=== PATIENT | female | born 1950 | race Caucasian/White ===

== ENCOUNTER 2020-03-09 19:31 | Inpatient (IN) ==
[2020-03-09] MEDS ORDERED: ONDANSETRON 4 MG/2 ML VIAL IV ONE (20:22)
[2020-03-09] MEDS ORDERED: ONDANSETRON 4 MG/2 ML VIAL ONE (20:23)
[2020-03-09 21:00] LABS: Eosinophils % 0.5 % (0.00-10.9); Hematocrit 45.3 VOL% (35.7-47.0); Hemoglobin 14.7 GM/DL (12.0-16.0); Immature Granulocytes % 0.2 %; Immature Granulocytes Absolute 0.01 #; Lymphocytes # 1.5 10*3/uL (1.4-4.0); Lymphocytes % 25.4 % (21.3-54.2); Mean Corpuscular HGB Conc 32.5 GM/DL (32-36); Mean Corpuscular Volume 89.3 FL (87-102); Mean Platelet Volume 9.4 FL (9.6-12.0); Monocytes % 4.2 % (1.7-12.7); Neutrophils % 69.7 % (38.7-73.9); Platelet Count 164 T/CUMM (130-400); Red Blood Count 5.07 MC/CUMM (3.8-5.5); Red Cell Distribution Width 12.8 % (9.3-17.3); White Blood Count 5.8 T/CUMM (4-12)
[2020-03-09 21:11] LABS: INR 1.1; PT Patient Result 11.7 SECS (9.8-11.9); Partial Thromboplastin Time 33.9 SECS (23.9-33.8)
[2020-03-09 21:13] LABS: Ferritin 232.2 ng/ml (8-252)
[2020-03-09 21:13] LABS: Apearance,Urine CLOUDY (Clear); Bacteria,Urine Moderate /HPF (Few); Bilirubin,Urine Negative (Negative); Blood, Urine Large mg/dL (Negative); Glucose,Urine (UA) Negative (Negative); Ketones,Urine 80 mg/dL (Negative); Mucus,Urine Many /LPF (Occasional); Nitrite,Urine Negative (Negative); Protein,Urine 100 MG/DL; RBC,Urine 5 /HPF (0-4); Squamous Epithelial Cell,Urine Occasional /HPF (0-10); Urine Specific Gravity 1.032 (1.001-1.035); WBC,Urine 16 /HPF (0-6)
[2020-03-09 21:15] LABS: Urine Color Yellow (Yellow)
[2020-03-09] MEDS ORDERED: cefTRIAXone 1,000 MG in SODIUM CHLORIDE 0.9% 100 ML IV STA (21:19)
[2020-03-09 21:22] LABS: Albumin 3.6 G/DL (3.4-5.0); Bilirubin,Total 0.5 MG/DL (0.2-1.0); Calcium 8.7 MG/DL (8.5-10.1); Osmolality,Calculated 274.8 MOS/KG (273-304); Total Protein 7.3 G/DL (6.4-8.3)
[2020-03-09] MEDS ORDERED: SODIUM CHLORIDE 0.9% 500 ML IV STA (21:31)
[2020-03-09] MEDS ORDERED: LORazepam 2 MG/1 ML VIAL IV STA (22:39)
[2020-03-09] MEDS ORDERED: ONDANSETRON 4 MG/2 ML VIAL IV PRN (23:14)
[2020-03-10] MEDS: SODIUM CHLORIDE 0.9% 1,000 ML IV SCH ×3 (01:25→21:42)
[2020-03-10 02:30] LABS: Hematocrit 41.1 VOL% (35.7-47.0); Hemoglobin 13.2 GM/DL (12.0-16.0); Immature Granulocytes % 0.4 %; Immature Granulocytes Absolute 0.02 #; Lymphocytes % 21.2 % (21.3-54.2); Mean Corpuscular HGB Conc 32.1 GM/DL (32-36); Mean Corpuscular Volume 90.3 FL (87-102); Mean Platelet Volume 9.3 FL (9.6-12.0); Monocytes % 5.2 % (1.7-12.7); Neutrophils % 73.2 % (38.7-73.9); Platelet Count 141 T/CUMM (130-400); Red Blood Count 4.55 MC/CUMM (3.8-5.5); Red Cell Distribution Width 12.8 % (9.3-17.3); White Blood Count 4.8 T/CUMM (4-12)
[2020-03-10] MEDS: ACETAMINOPHEN 325 MG TABLET PO PRN ×2 (02:34→08:29)
[2020-03-10 02:39] LABS: INR 1.1; PT Patient Result 11.9 SECS (9.8-11.9)
[2020-03-10 02:48] LABS: Bilirubin,Total 0.4 MG/DL (0.2-1.0); Calcium 8.3 MG/DL (8.5-10.1); Osmolality,Calculated 275.7 MOS/KG (273-304); Total Protein 6.7 G/DL (6.4-8.3)
[2020-03-10] MEDS: DOCUSATE SODIUM 100 MG CAPSULE PO SCH ×2 (08:28→20:12)
[2020-03-10] MEDS: ENOXAPARIN 40 MG/0.4 ML SYRINGE SUBCUT SCH (08:34)
[2020-03-10] MEDS ORDERED: PANTOPRAZOLE 40 MG TABLET PO SCH (09:00)
[2020-03-10] MEDS ORDERED: BENZONATATE 100 MG CAPSULE PO PRN (10:46)
[2020-03-10] MEDS ORDERED: CETIRIZINE 10 MG TABLET PO PRN (10:47)
[2020-03-10] MEDS ORDERED: ALBUTEROL 2.5 MG/3 ML NEB RESP TX PRN (10:47)
[2020-03-10] MEDS: methylPREDNISolone SOD SUC 40 MG/1 ML VIAL IV SCH (15:15)
[2020-03-10] MEDS: cefTRIAXone 1,000 MG in SYRINGE 1 EACH IV SCH (15:15)
[2020-03-10] MEDS ORDERED: IBUPROFEN 600 MG TABLET PO PRN (16:23)
[2020-03-10] MEDS ORDERED: LORazepam 1 MG TABLET PO PRN (16:47)
[2020-03-11 06:03] LABS: Calcium 8.5 MG/DL (8.5-10.1); Osmolality,Calculated 278.4 MOS/KG (273-304)
[2020-03-11] MEDS: LEVOTHYROXINE 112 MCG TABLET PO SCH (08:19)
[2020-03-11] MEDS: ASPIRIN EC 81 MG TABLET PO SCH (08:20)
[2020-03-11] MEDS: CITALOPRAM 20 MG TABLET PO SCH (08:20)
[2020-03-11] MEDS: methylPREDNISolone SOD SUC 40 MG/1 ML VIAL IV SCH ×2 (08:21→21:41)
[2020-03-11] MEDS: ENOXAPARIN 40 MG/0.4 ML SYRINGE SUBCUT SCH (08:21)
[2020-03-11] MEDS: cefTRIAXone 1,000 MG in SYRINGE 1 EACH IV SCH (08:22)
[2020-03-11] MEDS: SODIUM CHLORIDE 0.9% 1,000 ML IV SCH ×2 (09:35→18:36)
[2020-03-11] MEDS: DOCUSATE SODIUM 100 MG CAPSULE PO SCH (09:36)
[2020-03-11] MEDS: ACETAMINOPHEN 325 MG TABLET PO PRN (11:30)
[2020-03-11] MEDS ORDERED: MECLIZINE 12.5 MG TABLET PO ONE (12:00)
[2020-03-12] MEDS: DOCUSATE SODIUM 100 MG CAPSULE PO SCH ×3 (03:29→20:40)
[2020-03-12] MEDS: CITALOPRAM 20 MG TABLET PO SCH (09:20)
[2020-03-12] MEDS: LEVOTHYROXINE 112 MCG TABLET PO SCH (09:20)
[2020-03-12] MEDS: ENOXAPARIN 40 MG/0.4 ML SYRINGE SUBCUT SCH (09:20)
[2020-03-12] MEDS: ASPIRIN EC 81 MG TABLET PO SCH (09:20)
[2020-03-12] MEDS: SODIUM CHLORIDE 0.9% 1,000 ML IV SCH ×2 (09:51→14:43)
[2020-03-12] MEDS: cefTRIAXone 1,000 MG in SYRINGE 1 EACH IV SCH (09:53)
[2020-03-12] MEDS: methylPREDNISolone SOD SUC 40 MG/1 ML VIAL IV SCH ×2 (09:54→20:40)
[2020-03-12] MEDS ORDERED: traZODone 50 MG TABLET PO PRN (10:16)
[2020-03-12] MEDS: CALCIUM CARBONATE CHEW 500 MG TABLET PO SCH ×2 (10:21→18:55)
[2020-03-12] MEDS: MECLIZINE 25 MG TABLET PO PRN (10:22)
[2020-03-12] MEDS: FAMOTIDINE 20 MG TABLET PO SCH ×2 (12:23→20:40)
[2020-03-13] MEDS: SODIUM CHLORIDE 0.9% 1,000 ML IV SCH ×4 (00:23→22:32)
[2020-03-13 05:29] LABS: Hematocrit 36.6 VOL% (35.7-47.0); Hemoglobin 12.2 GM/DL (12.0-16.0); Immature Granulocytes % 0.3 %; Immature Granulocytes Absolute 0.01 #; Lymphocytes # 0.7 10*3/uL (1.4-4.0); Lymphocytes % 21.7 % (21.3-54.2); Mean Corpuscular HGB Conc 33.3 GM/DL (32-36); Mean Corpuscular Volume 85.5 FL (87-102); Mean Platelet Volume 9.6 FL (9.6-12.0); Monocytes % 3.8 % (1.7-12.7); Neutrophils % 74.2 % (38.7-73.9); Platelet Count 159 T/CUMM (130-400); Red Blood Count 4.28 MC/CUMM (3.8-5.5); Red Cell Distribution Width 12.8 % (9.3-17.3); White Blood Count 3.4 T/CUMM (4-12)
[2020-03-13 06:08] LABS: Calcium 8.3 MG/DL (8.5-10.1); Osmolality,Calculated 277.7 MOS/KG (273-304)
[2020-03-13 06:12] LABS: Lymphocytes 18 % (20-55); Nucleated Red Blood Cells 1 (0-5); Platelet Estimate Adequate; Segmented Neutrophils 80 % (50-85); Total Cells Counted 100
[2020-03-13 06:13] LABS: Hypochromasia 1+; Ovalocytes Slight
[2020-03-13] MEDS: cefTRIAXone 1,000 MG in SYRINGE 1 EACH IV SCH (08:39)
[2020-03-13] MEDS: ENOXAPARIN 40 MG/0.4 ML SYRINGE SUBCUT SCH (08:39)
[2020-03-13] MEDS: ASPIRIN EC 81 MG TABLET PO SCH (08:40)
[2020-03-13] MEDS: FAMOTIDINE 20 MG TABLET PO SCH ×2 (08:40→21:16)
[2020-03-13] MEDS: CALCIUM CARBONATE CHEW 500 MG TABLET PO SCH ×2 (08:40→16:18)
[2020-03-13] MEDS: LEVOTHYROXINE 112 MCG TABLET PO SCH (08:40)
[2020-03-13] MEDS: CITALOPRAM 20 MG TABLET PO SCH (08:40)
[2020-03-13] MEDS: methylPREDNISolone SOD SUC 40 MG/1 ML VIAL IV SCH (08:40)
[2020-03-13] MEDS: DOCUSATE SODIUM 100 MG CAPSULE PO SCH ×2 (08:41→21:18)
[2020-03-13] MEDS: MECLIZINE 25 MG TABLET PO PRN ×2 (15:15→22:24)
[2020-03-14] MEDS: FAMOTIDINE 20 MG TABLET PO SCH (08:39)
[2020-03-14] MEDS: CALCIUM CARBONATE CHEW 500 MG TABLET PO SCH ×2 (08:39→09:18)
[2020-03-14] MEDS: LEVOTHYROXINE 112 MCG TABLET PO SCH (08:40)
[2020-03-14] MEDS: ASPIRIN EC 81 MG TABLET PO SCH (08:40)
[2020-03-14] MEDS: CITALOPRAM 20 MG TABLET PO SCH (08:40)
[2020-03-14] MEDS: DOCUSATE SODIUM 100 MG CAPSULE PO SCH (08:40)
[2020-03-14] MEDS: ENOXAPARIN 40 MG/0.4 ML SYRINGE SUBCUT SCH (08:41)
[2020-03-14] MEDS: cefTRIAXone 1,000 MG in SYRINGE 1 EACH IV SCH (08:42)
[2020-03-14] MEDS ORDERED: methylPREDNISolone SOD SUC 40 MG/1 ML VIAL IV SCH (09:00)
[2020-03-14] MEDS ORDERED: amLODIPine 5 MG TABLET PO SCH (09:00)
[2020-03-14] MEDS ORDERED: POTASSIUM CHLORIDE 20 MEQ TABLET PO ONE (09:00)
[2020-03-14] MEDS: MECLIZINE 25 MG TABLET PO PRN (10:12)
[2020-03-14 12:28] VITALS: BP 136/82
== END 2020-03-14 13:28 | disposition home or self-care (01) | DRG 179 ==
LOC: N.EDINP 19:31 → N.ED 19:31 → N.EDINP 03-10 01:10 → N.2E 03-10 01:52
PROVIDERS: ADMIT Family Medicine; ATTEND Family Medicine

== ENCOUNTER 2020-11-21 11:05 | Observation (INO) ==
[2020-11-21] MEDS ORDERED: ASPIRIN 325 MG TABLET PO STA (11:30)
[2020-11-21] MEDS ORDERED: NITROGLYCERIN SL 0.4 MG TABLET SL PRN (11:30)
[2020-11-21 11:37] LABS: Basophils % 0.3 % (0.0-0.8); Eosinophils # 0.2 10*3/uL (0.0-0.87); Eosinophils % 3.7 % (0.00-10.9); Hematocrit 42.9 VOL% (35.7-47.0); Hemoglobin 13.3 GM/DL (12.0-16.0); Immature Granulocytes % 0.2 %; Immature Granulocytes Absolute 0.01 #; Lymphocytes # 2.5 10*3/uL (1.4-4.0); Lymphocytes % 41.3 % (21.3-54.2); Mean Corpuscular Volume 92.5 FL (87-102); Mean Platelet Volume 8.7 FL (9.6-12.0); Monocytes % 6.3 % (1.7-12.7); Neutrophils % 48.2 % (38.7-73.9); Platelet Count 193 T/CUMM (130-400); Red Blood Count 4.64 MC/CUMM (3.8-5.5); Red Cell Distribution Width 14.6 % (9.3-17.3)
[2020-11-21 11:43] LABS: PT Patient Result 10.8 SECS (9.8-11.9)
[2020-11-21 11:53] LABS: Bilirubin,Total 0.4 MG/DL (0.2-1.0); Calcium 8.8 MG/DL (8.5-10.1); Osmolality,Calculated 280.4 MOS/KG (273-304); Potassium 3.9 MMOL/L (3.5-5.1); Total Protein 7.2 G/DL (6.4-8.2)
[2020-11-21] MEDS ORDERED: ACETAMINOPHEN 325 MG TABLET PO PRN (12:47)
[2020-11-21] MEDS ORDERED: ONDANSETRON 4 MG/2 ML VIAL IV PRN (12:47)
[2020-11-21] MEDS ORDERED: CETIRIZINE 10 MG TABLET PO PRN (12:50)
[2020-11-21] MEDS: DOCUSATE SODIUM 100 MG CAPSULE PO SCH (21:09)
[2020-11-22 06:15] LABS: Basophils % 0.2 % (0.0-0.8); Eosinophils # 0.3 10*3/uL (0.0-0.87); Eosinophils % 4.8 % (0.00-10.9); Hematocrit 41.4 VOL% (35.7-47.0); Hemoglobin 13.1 GM/DL (12.0-16.0); Immature Granulocytes % 0.2 %; Immature Granulocytes Absolute 0.01 #; Lymphocytes # 2.2 10*3/uL (1.4-4.0); Lymphocytes % 43.1 % (21.3-54.2); Mean Corpuscular HGB Conc 31.6 GM/DL (32-36); Mean Platelet Volume 8.8 FL (9.6-12.0); Monocytes % 8.3 % (1.7-12.7); Neutrophils % 43.4 % (38.7-73.9); Platelet Count 175 T/CUMM (130-400); Red Blood Count 4.55 MC/CUMM (3.8-5.5); Red Cell Distribution Width 14.5 % (9.3-17.3); White Blood Count 5.2 T/CUMM (4-12)
[2020-11-22 06:39] LABS: Albumin 3.3 G/DL (3.4-5.0); Bilirubin,Total 0.7 MG/DL (0.2-1.0); Calcium 8.3 MG/DL (8.5-10.1); Osmolality,Calculated 283.1 MOS/KG (273-304); Potassium 3.5 MMOL/L (3.5-5.1); Total Protein 6.2 G/DL (6.4-8.2)
[2020-11-22 08:03] VITALS: BP 133/71
[2020-11-22] MEDS ORDERED: PANTOPRAZOLE 40 MG TABLET PO SCH (09:00)
[2020-11-22] MEDS ORDERED: CITALOPRAM 20 MG TABLET PO SCH (09:00)
[2020-11-22] MEDS ORDERED: ASPIRIN EC 81 MG TABLET PO SCH (09:00)
[2020-11-22] MEDS ORDERED: LEVOTHYROXINE 75 MCG TABLET PO SCH (09:00)
[2020-11-22] MEDS: DOCUSATE SODIUM 100 MG CAPSULE PO SCH (09:14)
== END 2020-11-22 11:57 | disposition home or self-care (01) ==
LOC: N.EDINP 11:05 → N.ED 11:05 → N.TELEN 14:16
PROVIDERS: ADMIT Family Medicine; ATTEND Family Medicine